=== PATIENT | male | born 1945 | race Caucasian/White ===

== ENCOUNTER 2020-07-13 14:17 | Outpatient (CLI) | payer MEDICARE, SELFPAY ==
--- NOTE | ~2020-07-13 | CT_ITS ---
EXAMINATION: CT brain wo con EXAM DATE: 07/13/2020 14:57 INDICATION: Tremors. TECHNIQUE: Spiral CT of the head was performed without contrast. Axial, coronal and sagittal images were reviewed. The dose-length product (DLP) for this examination was 605.33 mGy-cm. The exposure w as tailored according to patient size, and iterative reconstruction (ASIR) was used as additional dos e reduction technique. There is no prior study for comparison. FINDINGS: There is no acute intraparenchymal hemorrhage. No evidence of intraparenchymal brain mass lesion. No evidence of acute infarction. Please note that initial head CT has limited sensitivity f or small or acute infarctions. There is mild periventricular and subcortical hypodensity, nonspecific but probably related to small vessel ischemic disease. There is mild prominence of the sulci and v entricles related to cerebral atrophy. There is intracranial carotid arteriosclerosis. There are n o extra-axial collections. There is no mass effect or midline shift. The orbits are unremarkable. Soft tissue is unremarkable. The visualized sinuses and mastoid air cells are well aerated. IMPRESSION: 1. No acute intracranial findings. 2. Chronic age related findings. Reviewed, dictated and finalized at location B. [employer]
== END 2020-07-13 14:18 | disposition home or self-care (01) ==
PROVIDERS: Visit Provider Psychiatry & Neurology Neurology
DX: R25.1 Tremor, unspecified (principal)
CPT/HCPCS: 70450

== ENCOUNTER 2021-02-07 00:48 | Day surgery (SDC) | payer MEDICARE, SELFPAY ==
[2021-01-26 11:06] VITALS: BMI 29.5
--- NOTE | 2021-02-04 17:44 | P.PNAN_ITS ---
Anes - Eval Pre Procedure Procedure: Operation Date: 02/07/21 09:15 Proposed Procedures p Screening Colonoscopy - Chidi Dowling MD Date/Time: 02/04/21 17:44 Pre Op Diagnosis: neoplasm screening, family hx colon ca Patient Data Age: 75 Gender: M Height: 1.73 m Weight: 88 kg Allergies Allergy/AdvReac Type Severity Reaction Status Date / Time No Known Allergies Allergy Verified 01/26/21 11:05 Home Medications Medication Instructions Recorded Confirmed Type alprazolam 0.5 mg PO BID 01/26/21 01/26/21 History apixaban [Eliquis] 5 mg PO DAILY 01/26/21 01/26/21 History carvedilol 3 mg PO BID 01/26/21 01/26/21 History diltiazem HCl 240 mg PO DAILY 01/26/21 01/26/21 History losartan 50 mg PO DAILY 01/26/21 01/26/21 History magnesium oxide 400 mg PO DAILY 01/26/21 01/26/21 History 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
[2021-02-07 08:06] VITALS: BP 155/84; PULSE 75; RESP 20; TEMP 35.9; O2SAT 99
--- NOTE | 2021-02-07 08:14 | P.CONGI_ITS ---
Assessment and Plan Assessment and plan (1) Encounter for screening colonoscopy: Code(s): Z12.11 - Encounter for screening for malignant neoplasm of colon Status: Acute Assessment and Plan: patient presents for screening colonoscopy. Last exam was 7 years ago. He does have a family history of colon cancer in an uncle. GI Consult Note Consult date/time: 02/07/21 08:14 HPI: Arnoldo Milan is a 75 year old male Presents for screening colonoscopy. He states that his current weight appetite bowel movements are normal. He denies abdominal pain. He has had no bleeding. Patient reports that an uncle had colon cancer. There are no first-degree relatives with cancer polyps that he is aware of. Patient reports his bowel habits have remained normal with no bleeding. Presents today for screening colonoscopy. His last colonoscopy was about 7 years ago. Patient's past medical history is significant for cardiac pacemaker. He has atrial fibrillation for which she is on Eliquis. He does have a tremor. Review of Systems Review of Systems: All systems reviewed & are unremarkable except as noted in HPI and below PMFSH Past Medical History Medical History (Updated 02/07/21 @ 08:16 by Chidi Dowling MD) Anxiety Atrial fibrillation Hyperlipidemia Hypertension Pacemaker Renal stones Surgical History Surgical History (Updated 02/04/21 @ 17:44 by Ez Acosta DO) History of appendectomy Social History Social History Smoking status: Never smoker Alcohol intake: never Substance use type: does not use Living arrangements: with family Spiritual care concerns: No Meds Home Medications and Allergies Home Medications Medication Instructions Recorded Confirmed Type alprazolam 0.5 mg PO BID 01/26/21 02/07/21 History apixaban [Eliquis] 5 mg PO DAILY 01/26/21 02/07/21 History carvedilol 3 mg PO BID 01/26/21 02/07/21 History diltiazem HCl 240 mg PO DAILY 01/26/21 02/07/21 History losartan 50 mg PO DAILY 01/26/21 02/07/21 History magnesium oxide 400 mg PO DAILY 01/26/21 02/07/21 History 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 Vital signs are stable. HEENT exam is unremarkable. Patient is anicteric. Lungs are clear to auscultation and percussion. Heart is without murmur or extra sounds. Abdominal exam bowel sounds are present soft nontender with no hepatosplenomegaly. Digital external rectal exam normal.
[2021-02-07] MEDS: LACTATED RINGERS 1,000 ML 150 ML IV CONT (08:21)
--- NOTE | 2021-02-07 08:32 | P.PNAN_ITS ---
Anes - Eval Final PreProcedure Day of Procedure 02/07/21 08:32 Patient weight: overweight Heart: irregular rhythm Lungs: clear to auscultation Airway: Mallampati scale class II Neurological: alert and oriented Last oral intake: >/= 8 hours ASA classification: III Emergent: no Anesthetic plan: proceed Anesthesia type and monitoring: general GIVS and standard monitoring Informed Consent: The patient's anesthetic plan and its attendant risks and keith efits were discussed with the patient/family/POA. Questions were solicited and answers provided to the satisfaction of the patient/family/POA.
[2021-02-07 09:18] VITALS: BP 105/67; PULSE 74; RESP 15; O2SAT 94
[2021-02-07 09:24] VITALS: BP 106/69; PULSE 75; RESP 20; O2SAT 94
[2021-02-07 09:34] VITALS: BP 127/86; PULSE 69; RESP 21; O2SAT 98
== END 2021-02-07 09:45 | disposition home or self-care (01) ==
PROVIDERS: PCP Internal Medicine; Visit Provider Internal Medicine Gastroenterology
PROC: 0DJD8ZZ Inspection of Lower Intestinal Tract, Via Natural or Artificial Opening Endoscopic (ICD-10-PCS; CPT 45378; principal; 2021-02-07 09:15)
DX: Z12.11 Encounter for screening for malignant neoplasm of colon (principal); Z80.0 Family history of malignant neoplasm of digestive organs; K64.8 Other hemorrhoids; K57.30 Diverticulosis of large intestine without perforation or abscess without bleeding; F41.9 Anxiety disorder, unspecified; I10 Essential (primary) hypertension; I48.91 Unspecified atrial fibrillation; E78.5 Hyperlipidemia, unspecified; Z95.0 Presence of cardiac pacemaker; Z79.01 Long term (current) use of anticoagulants
CPT/HCPCS: G0105; J2704; J7120

== ENCOUNTER 2023-10-08 13:55 | Outpatient (CLI) | payer MEDICARE, SELFPAY ==
--- NOTE | ~2023-10-08 | PE_ITS ---
EXAMINATION: PET_PETPSMAST_PT DATE: 10/09/2023 06:40 INDICATION: Prostate cancer TECHNIQUE: 4.414 mCi of Locametz Ga-[id number]) was administered i.v. Low dose computed dusty ography (CT) images were acquired from the base of the brain to the base of the brain to the proximal thighs for attenuation correction and anatomic localization. Positron emission tomography (PET) imag es were acquired in the same distribution beginning 84 minutes after injection. Images including fuse d PET/CT images were reconstructed in axial, coronal, and sagittal planes. Automated exposure control technique was employed. The dose-length product was 1154.96 mGy-cm. COMPARISON: None FINDINGS: Head/neck: Typical pattern of symmetric physiologic increased activity in the lacrimal, parotid and submandibula r glands as well as along the mucosa of the nasal and oral cavities, the eriberto-, naso- and hypopharynx, the glottis and esophagus. Multinodular goiter with largest measuring up to 1.9 cm in the right thyr oid lobe. No pathologically enlarged cervical lymphadenopathy or suspicious foci of increased uptake in the visualized head or neck. Chest: Mild scattered respiratory motion and mild dependent and basilar atelectasis. No suspicious pulmonary nodules, pneumonia, pulmonary edema or pleural effusion. Mild cardiomegaly. Left pectoral dual-lead cardiac pacemaker with lead tips terminating at the right atrial appendage and at the apex of the rig ht ventricle. Small amount of atherosclerotic coronary artery calcific location. No pericardial effus ion. Thoracic aorta is normal in caliber. No pathologically enlarged or PSMA avid thoracic lymphadeno glenys. Abdomen/pelvis/proximal thighs: Physiologic renal accumulation and excretion of activity in the kidneys, bladder and along portions o f ureters. There are 4 nonobstructing stones or clusters of stones in the calyces of the right kidney the largest measuring up to 1.3 cm in maximal length. There is a small region of cortical scarring a t the upper pole of the right kidney. There is also a 9 mm exophytic low attenuation right renal cyst . There is a small focus of mild increased activity at the left posterior aspect of the prostate with out radiologic correlate presumably representing the reported primary prostate cancer. Normal degree and slightly heterogenous pattern of increased uptake throughout the liver and spleen without radiolo gic correlate or dominant PSMA avid lesion. The gallbladder, pancreas and right adrenal gland are nor mal. No abnormal uptake associated with a 1 cm low-attenuation left adrenal adenoma. Moderate uptake scattered throughout the bowels with typical duodenal and proximal jejunal predominance and without r adiologic correlate, also likely physiologic. There is sigmoid predominant diverticulosis without adj acent from trace stranding to suggest diverticulitis. No other abnormal foci of increased uptake or p athologically enlarged lymphadenopathy in the abdomen, pelvis or proximal thighs. Musculoskeletal: There is no discernible uptake associated with a small sclerotic likely bone island oriented along th e trabecular axis at the left ischial tuberosity. Additional tiny sclerotic likely bone islands witho ut PSMA uptake at the L5 vertebral body. No other suspicious lytic, blastic or PSMA avid bone lesions . IMPRESSION: 1. Small region of asymmetric increased PSMA uptake at the left posterior aspect of the mildly enlarg ed prostate likely representing the site of the reported primary prostate cancer. No evident PSMA torres d lesions suspicious for metastatic disease. 2. Nonobstructing right nephrolithiasis. Reviewed, dictated and finalized at location B. IMPRESSION: 1. Small region of asymmetric increased PSMA uptake at the left posterior aspec t of
== END 2023-10-08 13:56 | disposition home or self-care (01) ==
PROVIDERS: PCP Internal Medicine; Visit Provider Urology
DX: C61 Malignant neoplasm of prostate (principal); N20.0 Calculus of kidney
CPT/HCPCS: 78815; A9595; A9596